=== PATIENT | female | born 1970 | race Caucasian/White ===

== ENCOUNTER 2021-06-24 15:54 | Emergency (ER) | payer OTHER ==
[2021-06-24] MEDS ORDERED: Zofran 4 MG/2 ML VIAL IV ONE (16:12)
[2021-06-24] MEDS ORDERED: Sodium Chloride 0.9% 1000 ML 1,000 ML IV STA (16:12)
[2021-06-24] MEDS ORDERED: MORPHINE SULFATE 4 MG INJ IV ONE (16:13)
[2021-06-24] MEDS ORDERED: Zofran 4 MG/2 ML VIAL ONE (16:14)
[2021-06-24] MEDS ORDERED: Sodium Chloride 0.9% 1000 ML 1,000 ML ONE (16:14)
[2021-06-24] MEDS ORDERED: MORPHINE SULFATE 4 MG INJ ONE (16:14)
--- NOTE | 2021-06-24 16:21 | ERPHSYRPT ---
- History of Present Illness Time Seen by Provider: 06/24/21 15:55 Historian: patient Exam Limitations: no limitations Patient Subjective Stated Complaint: Pt states that she has a lot of pelvic pressure and off and on blood in her urine and the feeling of having to urinate a lot, had low back pain starting 4 days ago Triage Nursing Assessment: Pt brought to the ER by her room mate, hypertensive, rates pain as 7/10, bleeding began today, lots of pressure in her lower abdomen/pelvic region, urge to urinate frequently, not concerned with any STD due to absenece for several years Physician History: 50 years old female presented to the ER with chief complaint of flank and lower abdominal pain. Patient reports 4 days ago she woke up with bilateral flank pain which got better but gradually worsening more in the pelvic/suprapubic area, dull sharp to burning, more with urination. Reports increase urinary frequency a nd sense of incomplete voiding and noticed some hematuria prior to arrival. Denies any history of kidney stones. No fever or chills reported. Timing/Duration: day(s) (4), gradual onset, worse Activities at Onset: rest Quality: burning, sharpness Abdominal Pain Onset Location: suprapubic, flank Severity of Pain-Max: moderate Severity of Pain-Current: moderate Modifying Factors: Worsens With: urinating Associated Symptoms: nausea, No fever/chills Previous symptoms: no prior history Allergies/Adverse Reactions: No Known Drug Allergies Allergy (Verified 06/24/21 16:12) Home Medications: Atorvastatin Calcium 40 mg PO DAILY 06/24/21 [History] Doxepin HCl 25 mg PO DAILY 06/24/21 [History] Enalapril Maleate 2.5 mg PO DAILY 06/24/21 [History] Metformin HCl 500 mg [Glucophage 500 MG] 500 mg PO DAILY 06/24/21 [History] Metoprolol Tartrate 100 mg PO BID 06/24/21 [History] Omeprazole 40 mg PO DAILY 06/24/21 [History] Venlafaxine HCl [Venlafaxine HCl ER] 150 mg PO DAILY 06/24/21 [History] Travel Risk - International Travel Have you traveled outside of the country in past 3 weeks: No - Coronavirus Screening Are you exhibiting any of the following symptoms?: No Close contact with a COVID-19 positive Pt in past 14-21 Days: No - Vaccine Status Have you recieved a Covid-19 vaccination: No - Review of Systems Constitutional: No Symptoms Eyes: No Symptoms Ears, Nose, & Throat: No Symptoms Respiratory: No Symptoms Cardiac: No Symptoms Abdominal/Gastrointestinal: Abdominal Pain, Nausea Genitourinary Symptoms: Dysuria, Frequency, Hematuria Musculoskeletal: Back Pain Skin: No Symptoms Neurological: No Symptoms Psychological: No Symptoms Endocrine: No Symptoms Hematologic/Lymphatic: No Symptoms Immunological/Allergic: No Symptoms - Past Medical History Pertinent Past Medical History: Yes Cardiac History: High Cholesterol, Hypertension Endocrine Medical History: Diabetes Type II Psycho-Social History: Anxiety, Depression - Past Surgical History Past Surgical History: Yes Female Surgical History: Hysterectomy, Tubal Ligation - Social History Smoking Status: Current every day smoker Exposure to second hand smoke: Yes Patient Lives Alone: No - Nursing Vital Signs Nursing Vital Signs: Initial Vital Signs Temperature 98.5 F 06/24/21 16:00 Pulse Rate 90 06/24/21 16:00 Blood Pressure 161/102 06/24/21 16:00 O2 Sat by Pulse Oximetry 97 06/24/21 16:00 Pain Scale Pain Intensity 7 - Physical Exam General Appearance: no apparent distress, alert Eye Exam: PERRL/EOMI, eyes nml inspection Ears, Nose, Throat Exam: normal ENT inspection, pharynx normal Neck Exam: normal inspection, supple, full range of motion Respiratory Exam: normal breath sounds, lungs clear Cardiovascular Exam: regular rate/rhythm, normal heart sounds Gastrointestinal/Abdomen Exam: soft, normal bowel sounds, tenderness (Suprapubic), No distention, No guarding Back Exam: normal inspection, normal range of motion, CVA tenderness (Bilateral) Extremity Exam: normal inspection, normal range of motion, pelvis stable Neurologic Exam: alert, oriented x 3, cooperative Skin Exam: normal color SpO2 Interpretation: normal SpO2: 97 O2 Delivery: Room Air Ordered Tests: Active Orders 24 hr Category Date Time Status IV Insertion STAT Care 06/24/21 16:11 Active ABDOMEN AND PELVIS W/0 CONTRAS [CT] Stat Exams 06/24/21 16:12 Completed CBC W DIFF Stat Lab 06/24/21 16:12 Completed CMP Stat Lab 06/24/21 16:12 Completed CULTURE,URINE Stat Lab 06/24/21 16:04 Received LIPASE Stat Lab 06/24/21 16:12 Completed UA W/RFX UR CULTURE Stat Lab 06/24/21 16:04 Completed Medication Summary Generic Name Dose Route Start Last Admin Trade Name Frealfred PRN Reason Stop Dose Admin Sodium Chloride 1,000 mls @ 999 mls/hr 06/24/21 16:12 06/24/21 16:16 Sodium Chloride 0.9% 1000 Ml IV 06/24/21 17:12 999 mls/hr .Q1H1M STA Administration Discontinued Medications Generic Name Dose Route Start Last Admin Trade Name Freq PRN Reason Stop Dose Admin Sodium Chloride Confirm 06/24/21 16:14 Sodium Chloride 0.9% 1000 Ml Administered 06/24/21 16:15 Dose 1,000 mls @ ud .ROUTE .STK-MED ONE Morphine Sulfate 4 mg 06/24/21 16:13 06/24/21 16:16 Morphine Sulfate 4 Mg/Ml Injection IV 06/24/21 16:14 4 mg STAT ONE Administration Morphine Sulfate Confirm 06/24/21 16:14 Morphine Sulfate 4 Mg/Ml Injection Administered 06/24/21 16:15 Dose 4 mg .ROUTE .STK-MED ONE Ondansetron HCl 4 mg 06/24/21 16:12 06/24/21 16:16 Ondansetron Hcl 4 Mg/2 Ml Vial IV 06/24/21 16:13 4 mg STAT ONE Administration Ondansetron HCl Confirm 06/24/21 16:14 Ondansetron Hcl 4 Mg/2 Ml Vial Administered 06/24/21 16:15 Dose 4 mg .ROUTE .STK-MED ONE Lab/Rad Data: Laboratory Result Diagrams 06/24/21 16:12 06/24/21 16:12 Laboratory Results 06/24/21 06/24/21 06/24/21 Range/Units 16:12 16:12 16:04 WBC 17.2 H (4.0-10.5) K/mm3 RBC 4.70 (4.1-5.4) M/mm3 Hgb 14.3 (12.0-16.0) gm/dl Hct 41.9 (35-47) % MCV 89.1 (78-100) fl MCH 30.4 (26-32) pg MCHC 34.1 (32-36) g/dl RDW 13.1 (11.5-14.0) % Plt Count 234 (150-450) K/mm3 MPV 10.2 (7.5-11.0) fl Gran % 79.2 H (36.0-66.0) % Eos # (Auto) 0.06 (0-0.5) Absolute Lymphs (auto) 2.73 (1.0-4.6) Absolute Monos (auto) 0.76 (0.0-1.3) Lymphocytes % 15.9 L (24.0-44.0) % Monocytes % 4.4 (0.0-12.0) % Eosinophils % 0.3 (0.00-5.0) % Basophils % 0.2 (0.0-0.4) % Absolute Granulocytes 13.60 H (1.4-6.9) Basophils # 0.04 (0-0.4) Sodium 138 (137-145) mmol/L Potassium 4.1 (3.5-5.1) mmol/L Chloride 105 (98-107) mmol/L Carbon Dioxide 23 (22-30) mmol/L Anion Gap 13.7 (5-15) MEQ/L BUN 10 (7-17) mg/dL Creatinine 0.56 (0.52-1.04) mg/dL Estimated GFR > 60.0 ML/MIN Glucose 148 H (74-106) mg/dL Calcium 9.8 (8.4-10.2) mg/dL Total Bilirubin 0.50 (0.2-1.3) mg/dL AST 34 (14-36) U/L ALT 46 H (0-35) U/L Alkaline Phosphatase 113 (38-126) U/L Serum Total Protein 7.2 (6.3-8.2) g/dL Albumin 4.6 (3.5-5.0) g/dL Lipase 208 (23-300) U/L Urine Color STRAW (YELLOW) Urine Appearance CLEAR (CLEAR) Urine pH 6.0 (5-6) Ur Specific [place] 1.004 (1.005-1.025) Urine Protein NEGATIVE (Negative) Urine Ketones NEGATIVE (NEGATIVE) Urine Blood LARGE (0-5) Richie/ul Urine Nitrite NEGATIVE (NEGATIVE) Urine Bilirubin NEGATIVE (NEGATIVE) Urine Urobilinogen NEGATIVE (0-1) mg/dL Ur Leukocyte Esterase NEGATIVE (NEGATIVE) Urine WBC (Auto) 11-15 (0-5) /HPF Urine RBC (Auto) 16-25 (0-2) /HPF U Epithel Cells (Auto) NONE (FEW) /HPF Urine Bacteria (Auto) NONE (NEGATIVE) /HPF Urine Culture Reflexed YES (NO) Urine Glucose NEGATIVE (NEGATIVE) mg/dL - Progress Progress: improved, re-examined Progress Note: 06/24/21 17:06 50 years old is evaluated for flank/pelvic/suprapubic discomfort with some hematuria. Given fluid bolus and symptomatic treatment for pain. Has a white count of 17, grossly unremarkable chemistry, does have UTI. I have obtained CT abdomen pelvis without contrast which showed jejunal thickening with finding consistent for enteritis. Patient later did report that she is having off-and-on loose stool for the last few days. I will treat her with Cipro and Flagyl which will cover enteritis and UTI. Recommended Tylenol/ibuprofen as needed and outpatient follow-up. Discussed signs symptoms of worsening needing return to ER which she seems understanding. Stable for discharge. Counseled pt/family regarding: lab results, diagnosis, need for follow-up, rad results - Departure Departure Disposition: Home Clinical Impression: Enteritis, Acute UTI Condition: Stable Critical Care Time: No Referrals: ALBA DAHL MD [Primary Care Provider] - Follow Up with PCP/3 days Instructions: Blood in the Urine (Hematuria) in Adults Additional Instructions: Drink plenty of fluids. Take Tylenol/ibuprofen as needed. Continue with antibiotics. Follow-up with your primary care for reevaluation. Return to ER for worsening abdominal pain, intractable diarrhea/vomiting/worsening blood in urine/fever chills etc. Prescriptions: Ciprofloxacin [Cipro 500 MG] 500 mg PO BID #14 tablet Metronidazole 500 mg [Flagyl 500 MG] 500 mg PO TID #21 tablet
[2021-06-24 16:37] LABS: BASOPHIL % 0.2 % (0.0-0.4); Basophil (Absolute #) 0.04 (0-0.4); Eosinophil % 0.3 % (0.00-5.0); Eosinophil (Absolute #) 0.06 (0-0.5); Hematocrit 41.9 % (35-47); Hemoglobin 14.3 gm/dl (12.0-16.0); Lymphocyte (Absolute #) 2.73 (1.0-4.6); Lymphocytes % 15.9 % (24.0-44.0); Mean Cell Volume 89.1 fl (78-100); Mean Corpuscular Hemoglobin 30.4 pg (26-32); Mean Corpuscular Hgb Concent. 34.1 g/dl (32-36); Mean Platelet Volume 10.2 fl (7.5-11.0); Monocyte (Absolute #) 0.76 (0.0-1.3); Monocytes % 4.4 % (0.0-12.0); Neutrophil % 79.2 % (36.0-66.0); Platelet Count 234 K/mm3 (150-450); Red Cell Distribution Width 13.1 % (11.5-14.0); White Blood Count 17.2 K/mm3 (4.0-10.5)
[2021-06-24 16:49] LABS: ALBUMIN 4.6 g/dL (3.5-5.0); ALKALINE PHOSPHATASE 113 U/L (38-126); ANION GAP 13.7 MEQ/L (5-15); BLOOD UREA NITROGEN 10 mg/dL (7-17); CHLORIDE 105 mmol/L (98-107); Calcium 9.8 mg/dL (8.4-10.2); Carbon Dioxide 23 mmol/L (22-30); Creatinine 1 0.56 mg/dL (0.52-1.04); EST GLOMERULAR FILTRATION RATE > 60.0 ML/MIN; Glucose 148 mg/dL (74-106); LIPASE 208 U/L (23-300); Potassium 4.1 mmol/L (3.5-5.1); SGOT/AST 34 U/L (14-36); SGPT/ALT 46 U/L (0-35); SODIUM 138 mmol/L (137-145); Total Protein 7.2 g/dL (6.3-8.2)
--- NOTE | 2021-06-24 16:50 | XRAY ---
Indication: Abdomen pain, hematuria, and nausea. Multiple contiguous axial images obtained through the abdomen and pelvis without contrast using renal stone protocol. Comparison: None Lung bases are clear. Heart not enlarged. No renal calculus or evidence for obstructive uropathy in either system. Noncontrasted stomach and bowel loops appear nonobstructed with normal appendix. A few jejunal bowel loops demonstrates mild distension with mild/moderate circumferential wall thickening as seen with enteritis. Previous hysterectomy. No free fluid/air. Remaining liver, gallbladder, pancreas, spleen, adrenal glands, kidneys, ureters, and bladder are unremarkable for noncontrast exam. Mild scattered aortoiliac calcifications without AAA. Osseous structures intact with minimal degenerative changes throughout the thoracolumbar spine. No ventral or inguinal hernias. Impression: 1. Negative renal calculus or evidence for obstructive uropathy. 2. Jejunal bowel wall thickening. Rule out enteritis. 3. Remaining CT abdomen/pelvis without contrast exam is negative.
[2021-06-24 16:52] LABS: Appearance CLEAR (CLEAR); Bilirubin NEGATIVE (NEGATIVE); Blood LARGE Ery/ul (0-5); Glucose NEGATIVE (NEGATIVE); Ketones NEGATIVE (NEGATIVE); Leukocyte Esterase NEGATIVE (NEGATIVE); Nitrite NEGATIVE (NEGATIVE); Protein,Urine Dip NEGATIVE (Negative); Specific Gravity 1.004 (1.005-1.025); Urobilinogen NEGATIVE mg/dL (0-1)
[2021-06-24] MEDS ORDERED: Flagyl 500 MG ONE ×2 (17:11→17:21)
[2021-06-24] MEDS ORDERED: Cipro 500 MG ONE (17:11)
[2021-06-24] MEDS: Cipro 500 MG PO STA ×2 (17:12→17:25)
[2021-06-24] MEDS: Flagyl 500 MG PO ONE ×2 (17:12→17:25)
[2021-06-24] MEDS ORDERED: Flagyl 500 MG PO ONE (17:18)
[2021-06-24] MEDS ORDERED: Levofloxacin 250MG Tablet PO ONE (17:19)
[2021-06-24] MEDS ORDERED: Levofloxacin 250MG Tablet ONE (17:20)
[2021-06-24] MEDS ORDERED: Augmentin 875-125 Tablet PO ONE (17:25)
[2021-06-24] MEDS ORDERED: Augmentin 875-125 Tablet ONE (17:26)
[2021-06-24 17:29] VITALS: BP 137/73; PULSE 84; O2SAT 96
== END 2021-06-24 17:35 | disposition home or self-care (01) ==
LOC: ED 15:54
DX: N39.0 Urinary tract infection, site not specified (principal); K52.9 Noninfective gastroenteritis and colitis, unspecified; R30.0 Dysuria; E78.5 Hyperlipidemia, unspecified; I10 Essential (primary) hypertension; E11.9 Type 2 diabetes mellitus without complications; Z79.84 Long term (current) use of oral hypoglycemic drugs; Z72.0 Tobacco use; Z79.899 Other long term (current) drug therapy
CPT/HCPCS: 36000; 36415; 74176; 80053; 81001; 83690; 85025; 87077; 87086; 87186; 96360; 96374; 96375; 99284; J2270; J2405; A9270-GY

== ENCOUNTER 2022-06-06 09:08 | Emergency (ER) | payer OTHER ==
--- NOTE | 2022-06-06 09:26 | ERPHSYRPT ---
- History of Present Illness Time Seen by Provider: 06/06/22 09:26 Source: patient Exam Limitations: no limitations Physician History: This is an obese 51-year-old white female patient of Dr. Dahl who states she had a fever of 102.3 F approximately 3 days ago with associated productive cough of green phlegm and body aches as well as headache. When she is coughing she has shortness of breath. She does not have chest pain. She does not have abdominal pain. She has been exposed to individuals with similar symptoms. She has not had nausea vomiting or diarrhea. Patient is a current daily smoker of cigarettes. Patient has a history of diabetes, gastroesophageal reflux disease, hyperlipidemia and hypertension. Timing/Duration: day(s) (3) Cough Quality/Degree: moderate, productive cough (Renal phlegm) Possible Cause: occasional episodes Modifying Factors: Improves With: coughing Associated Symptoms: fever, headache, muscle aches Allergies/Adverse Reactions: No Known Drug Allergies Allergy (Verified 06/24/21 16:12) Home Medications: Atorvastatin Calcium 40 mg PO DAILY 06/24/21 [History] Doxepin HCl 25 mg PO DAILY 06/24/21 [History] Enalapril Maleate 2.5 mg PO DAILY 06/24/21 [History] Metformin HCl 500 mg [Glucophage 500 MG] 500 mg PO DAILY 06/24/21 [History] Metoprolol Tartrate 100 mg PO BID 06/24/21 [History] Omeprazole 40 mg PO DAILY 06/24/21 [History] Venlafaxine HCl [Venlafaxine HCl ER] 225 mg PO DAILY 06/24/21 [History] Aspirin [Aspirin EC] 81 mg PO DAILY 06/06/22 [History] Travel Risk - International Travel Have you traveled outside of the country in past 3 weeks: No - Coronavirus Screening Are you exhibiting any of the following symptoms?: Yes Symptoms: Fever, Cough: New Onset, Headaches/Body Aches/Fatigue Close contact with a COVID-19 positive Pt in past 14-21 Days: No - Vaccine Status Have you recieved a Covid-19 vaccination: No - Review of Systems Constitutional: Fever Eyes: No Symptoms Ears, Nose, & Throat: No Symptoms Respiratory: Cough Cardiac: No Symptoms Abdominal/Gastrointestinal: No Symptoms Genitourinary Symptoms: No Symptoms Musculoskeletal: Arthralgias, Myalgias Skin: No Symptoms Neurological: No Symptoms Psychological: No Symptoms Endocrine: No Symptoms Hematologic/Lymphatic: No Symptoms Immunological/Allergic: No Symptoms All Other Systems: Reviewed and Negative - Past Medical History Pertinent Past Medical History: Yes Cardiac History: High Cholesterol, Hypertension Endocrine Medical History: Diabetes Type II Psycho-Social History: Anxiety, Depression - Past Surgical History Past Surgical History: Yes Female Surgical History: Hysterectomy, Tubal Ligation - Social History Smoking Status: Current every day smoker Exposure to second hand smoke: Yes Patient Lives Alone: No - Nursing Vital Signs Nursing Vital Signs: Initial Vital Signs Temperature 97.4 F 06/06/22 09:09 Pulse Rate 108 H 06/06/22 09:09 Respiratory Rate 22 06/06/22 09:09 Blood Pressure 154/89 06/06/22 09:09 O2 Sat by Pulse Oximetry 98 06/06/22 09:09 Pain Scale Pain Intensity 6 - Physical Exam General Appearance: no apparent distress, alert, anxiety, obese Eye Exam: PERRL/EOMI, eyes nml inspection Ears, Nose, Throat Exam: moist mucous membranes, other (Tongue with what appears to be oral candidiasis) Neck Exam: normal inspection, non-tender, supple, full range of motion Respiratory Exam: normal breath sounds, lungs clear, airway intact, No chest tenderness, No respiratory distress Cardiovascular Exam: tachycardia Gastrointestinal/Abdomen Exam: soft, normal bowel sounds, No tenderness Pelvic Exam: not done Rectal Exam: not done Back Exam: normal inspection, normal range of motion, No CVA tenderness, No vertebral tenderness Extremity Exam: normal inspection, normal range of motion, pelvis stable Neurologic Exam: alert, oriented x 3, cooperative, 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, normal mood/affect, nml cerebellar function, nml station & gait, sensation nml Skin Exam: normal color, warm, dry Lymphatic Exam: No adenopathy SpO2 Interpretation: normal O2 Delivery: Room Air - Course Nursing assessment & vital signs reviewed: Yes Ordered Tests: Active Orders 24 hr Category Date Time Status CHEST 1 VIEW (PORTABLE) Stat Exams 06/06/22 09:26 Taken Lab/Rad Data: Laboratory Results 06/06/22 Range/Units 09:45 Influenza Type A Ag POSITIVE (NEGATIVE) Influenza Type B Ag NEGATIVE (NEGATIVE) RSV (PCR) NEGATIVE (Negative) SARS-CoV-2 (PCR) NEGATIVE (NEGATIVE) Group A Strep Antibody NOT DETECTED (NEGATIVE) - Progress Progress: re-examined, unchanged Progress Note: 06/06/22 10:37 Chest x-ray shows a question of right basilar atelectasis versus early infiltrate. Medical decision making: This patient does have influenza A infection. She is coughing up some greenish phlegm and has had fevers at home. We will start Tamiflu on her, provide her with short course of steroids and start her on an antibiotic. We also will provide her with outpatient antitussive. Blood Culture(s) Obtained: No Antibiotics given: Yes Counseled pt/family regarding: lab results, diagnosis, need for follow-up, rad results - Departure Departure Disposition: Home Clinical Impression: Upper respiratory infection, Influenza A H1N1 infection, Oral candidiasis Condition: Stable Critical Care Time: No Referrals: ALBA DAHL MD [Primary Care Provider] - Follow up/PCP as directed Additional Instructions: Drink plenty of fluids. Take your medication as prescribed. Monitor your blood sugar closely while taking your steroids. Follow-up with your primary care provider for persistent symptoms. Prescriptions: Hydrocodone/Acetaminophen [Hydrocodone-Acetamn 7.5-325/15] 10 ml PO Q8H PRN PRN #120 ml MDD 30 ml PRN Reason: Cough Prednisone 10 mg [Deltasone 10 mg] 10 mg PO TID #12 tablet Fluconazole 100 mg [Diflucan 100 MG] 100 mg PO DAILY #7 tablet Oseltamivir 75 mg [Tamiflu 75MG Capsule] 75 mg PO BID #10 cap Azithromycin 250 mg [Zithromax 250 MG TABLET] 250 mg PO ZPACK #6 tablet
[2022-06-06 10:12] LABS: Group A Strep NOT DETECTED (NEGATIVE)
[2022-06-06 10:25] LABS: INFLUENZA B NEGATIVE (NEGATIVE); RESPIRATORY SYNCTIAL VIRUS NEGATIVE (Negative); SARS-CoV-2 Xpert Express NEGATIVE (NEGATIVE)
[2022-06-06 10:27] LABS: INFLUENZA A POSITIVE (NEGATIVE)
[2022-06-06 10:57] VITALS: O2SAT 96
[2022-06-06 11:06] VITALS: BP 98/82; PULSE 89
--- NOTE | 2022-06-06 16:09 | XRAY ---
Indication: Fever and cough. Comparison: None Portable chest inflated and clear. Heart not enlarged. Bony thorax intact with mild osteopenia and degenerative changes. Impression: Nonacute chest.
== END 2022-06-06 11:09 | disposition home or self-care (01) ==
LOC: ED 09:08
DX: J10.1 Influenza due to other identified influenza virus with other respiratory manifestations (principal); J06.9 Acute upper respiratory infection, unspecified; B37.0 Candidal stomatitis; R50.9 Fever, unspecified; R05.1 Acute cough; M79.10 Myalgia, unspecified site; R51.9 Headache, unspecified; E11.9 Type 2 diabetes mellitus without complications; E78.5 Hyperlipidemia, unspecified; I10 Essential (primary) hypertension; Z79.84 Long term (current) use of oral hypoglycemic drugs; Z79.891 Long term (current) use of opiate analgesic; Z79.52 Long term (current) use of systemic steroids; Z79.899 Other long term (current) drug therapy; Z72.0 Tobacco use; Z28.310 Unvaccinated for COVID-19
CPT/HCPCS: 0241U; 71045; 87651; 99283

== ENCOUNTER 2022-12-06 12:25 | Emergency (ER) | payer OTHER ==
--- NOTE | 2022-12-06 12:55 | ERPHSYRPT ---
- History of Present Illness Time Seen by Provider: 12/06/22 12:55 Source: patient Patient Subjective Stated Complaint: C/O left sided rib pain following a fall at home yesterday evening. Patient states she slipped in water on the kitchen floot. Denies hitting her head. Triage Nursing Assessment: Patient ambulated back to ER without difficulties; gait is slow and patient is gaurding left side. She is alert and oriented. NO SOB. Patient with a dry, weak cough; patient states it hurts too bad to cough forcefully. Physician History: This a 52-year-old white female who fell yesterday evening onto her left ribs. She has significant pain present. She has no other areas of pain other than the left ribs. Patient slipped on water which caused her to fall. Patient has a history of diabetes, hypertension, hyperlipidemia and GERD. Occurred: yesterday Reason for Fall: slipped (On water) Injuries/Pain Location: chest (Left mid to lower ribs) Loss of Consciousness: no loss of consciousness Quality: sharpness Severity of Pain-Max: moderate Severity of Pain-Current: moderate Modifying Factors: Improves With: movement Associated Symptoms (Fall): denies symptoms Allergies/Adverse Reactions: No Known Drug Allergies Allergy (Verified 12/06/22 12:36) Home Medications: Atorvastatin Calcium 40 mg PO DAILY 06/24/21 [History] Doxepin HCl 25 mg PO DAILY 06/24/21 [History] Enalapril Maleate 2.5 mg PO DAILY 06/24/21 [History] Metformin HCl 500 mg [Glucophage 500 MG] 500 mg PO DAILY 06/24/21 [History] Metoprolol Tartrate 100 mg PO BID 06/24/21 [History] Omeprazole 40 mg PO DAILY 06/24/21 [History] Venlafaxine HCl [Venlafaxine HCl ER] 225 mg PO DAILY 06/24/21 [History] Aspirin [Aspirin EC] 81 mg PO DAILY 06/06/22 [History] Hx Tetanus, Diphtheria Vaccination/Date Given: Yes Hx Influenza Vaccination/Date Given: No Hx Pneumococcal Vaccination/Date Given: No Immunizations Up to Date: Yes Travel Risk - International Travel Have you traveled outside of the country in past 3 weeks: No - Coronavirus Screening Are you exhibiting any of the following symptoms?: No Close contact with a COVID-19 positive Pt in past 14-21 Days: No - Vaccine Status Have you recieved a Covid-19 vaccination: No - Review of Systems Constitutional: No Symptoms Eyes: No Symptoms Ears, Nose, & Throat: No Symptoms Respiratory: No Symptoms Cardiac: No Symptoms Abdominal/Gastrointestinal: No Symptoms Genitourinary Symptoms: No Symptoms Musculoskeletal: Fall, Injury (Left mid to lower ribs) Skin: No Symptoms Neurological: No Symptoms Psychological: No Symptoms Endocrine: No Symptoms Hematologic/Lymphatic: No Symptoms Immunological/Allergic: No Symptoms All Other Systems: Reviewed and Negative - Past Medical History Pertinent Past Medical History: Yes Neurological History: No Pertinent History ENT History: No Pertinent History Cardiac History: High Cholesterol, Hypertension Respiratory History: No Pertinent History Endocrine Medical History: Diabetes Type II Musculoskeletal History: Fractures GI Medical History: GERD History: No Pertinent History Psycho-Social History: Anxiety, Depression Female Reproductive Disorders: No Pertinent History - Past Surgical History Past Surgical History: Yes Neuro Surgical History: No Pertinent History Cardiac: No Pertinent History Respiratory: No Pertinent History Gastrointestinal: No Pertinent History Genitourinary: No Pertinent History Musculoskeletal: No Pertinent History Female Surgical History: Hysterectomy, Tubal Ligation Other Surgical History: CARPARL TUNNEL SURGERY, TRIGGER FINGER, ELBOW - Social History Smoking Status: Current every day smoker How long have you smoked: 20 YEARS Exposure to second hand smoke: Yes Drug Use: none Patient Lives Alone: No - Nursing Vital Signs Nursing Vital Signs: Initial Vital Signs Blood Pressure 155/87 12/06/22 12:34 O2 Sat by Pulse Oximetry 96 12/06/22 12:34 Pain Scale Pain Intensity 8 - [place] Coma Score Best Eye Response ([place]): (4) open spontaneously Best Verbal Response ([place]): (5) oriented Best Motor Response ([place]): (6) obeys commands [place] Total: 15 - Physical Exam General Appearance: mild distress, alert, anxiety, obese Head Injury: no evidence of injury Eye Exam: PERRL/EOMI, eyes nml inspection ENT Exam: airway nml, nml ext.inspection, No evidence of ENT injury Neck Exam: supple, trachea midline, full range of motion, normal alignment, normal inspection Respiratory/Chest Exam: rib tenderness (Left mid to lower ribs), No crepitus, No wheezing, No accessory muscle use Cardiovascular Exam: normal heart sounds, regular rate/rhythm Gastrointestinal Exam: soft, normal bowel sounds, tenderness Rectal Exam: not done Back Exam: normal inspection, normal range of motion, No CVA tenderness, No vertebral tenderness Extremity Exam: normal inspection, normal range of motion, capillary refill <3 sec, pelvis stable Neurologic Exam: alert, oriented x 3, cooperative, 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, normal mood/affect, nml cerebellar function, nml station & gait, sensation nml Skin Exam: normal color, warm, dry SpO2 Interpretation: normal SpO2: 96 O2 Delivery: Room Air - Course Nursing assessment & vital signs reviewed: Yes Ordered Tests: Active Orders 24 hr Category Date Time Status CHEST 2 VIEWS (PA AND LAT) Stat Exams 12/06/22 12:35 Completed RIBS UNILATERAL Stat Exams 12/06/22 12:35 Completed Medication Summary Discontinued Medications Generic Name Dose Route Start Last Admin Trade Name Chalino PRN Reason Stop Dose Admin Oxycodone/Acetaminophen 1 tab 12/06/22 13:31 12/06/22 13:34 Oxycodone Hcl/Apap 5 Mg/325 Mg Tablet PO 12/06/22 13:32 1 tab STAT STA Administration Oxycodone/Acetaminophen Confirm 12/06/22 13:33 Oxycodone Hcl/Apap 5 Mg/325 Mg Tablet Administered 12/06/22 13:34 Dose 1 tab .ROUTE .STK-MED ONE - Progress Progress: improved, pain not gone completely Progress Note: 12/06/22 13:54 Rib x-rays and chest x-ray was interpreted by the radiologist and I reviewed the impression. This patient has nondisplaced rib fractures 8 9 and 10 on the left side. This patient's medical issue is 1 of low to moderate complexity. Patient has a new diagnosis. The level of complexity and the medical issue is based on the review of the patient's past medical history, review of the patient's medication list, review of the patient's drug allergy list, history of present illness and physical findings on examination. The patient requires a rib x-ray study as well as a chest x-ray study. Patient will need pain control. Patient is to follow-up with her primary care provider as an outpatient in the next 1 to 3 days for reevaluation and to assess her pain. There is no evidence of any hemothorax or pneumothorax on the impression from the radiologist. We will tell the patient not to use a chest or rib binder. Counseled pt/family regarding: diagnosis, need for follow-up, rad results Medical Desision Making - Diagnostic Testing Radiological Interpretation: Reviewed by me, Teleradiologist Report - Risk of complications The pt has a mod risk of morbidity or mortality based on: Need for prescription drug management - Departure Departure Disposition: Home Clinical Impression: Left rib fracture Condition: Stable Critical Care Time: No Referrals: ALBA DAHL MD [Primary Care Provider] - Follow up/PCP as directed Additional Instructions: Do not wear a chest or rib binder. Take your medications as prescribed. Call your primary care provider today to make arrangement for follow-up appointment in the next 1 to 3 days. Call your primary care provider for further evaluation and management of your pain control. Prescriptions: Oxycodone HCl/Acetaminophen [Percocet 5-325 mg Tablet] 1 each PO Q8H PRN PRN #9 tablet MDD 3 PRN Reason: Moderate To Severe Pain Naproxen 500 mg [Naprosyn 500 MG] 500 mg PO BID #10 tablet
[2022-12-06] MEDS ORDERED: PERCOCET TABLET 5/325MG PO STA (13:31)
[2022-12-06 13:32] VITALS: BP 131/86; PULSE 86
[2022-12-06] MEDS ORDERED: PERCOCET TABLET 5/325MG ONE (13:33)
--- NOTE | 2022-12-06 13:47 | XRAY ---
CLINICAL HISTORY:Fall with pain. COMPARISON:None. TECHNIQUES:X-ray chest (2 views) PA and lateral views. FINDINGS: Both lungs are clear. No sizable nodules, consolidation or masses. Both costophrenic angles are free. No sizable pleural effusion or thickening. Normal cardiac size and shape, normal aortic arch and no pericardial effusion. Unremarkable thoracic bony cage with no definite fractures detected. IMPRESSION: Normal chest radiograph. Electronically Signed by: Caden Reardon MD. ( 12/06/2022 12:43:29 HOME CARE CONSULTANT)
--- NOTE | 2022-12-06 13:49 | XRAY ---
CLINICAL HISTORY:Fall with pain. COMPARISON:None. TECHNIQUES:CR left ribs (6 views) AP and Oblique views. FINDINGS: Nondisplaced fractures of the left 8th, 9th and 10th ribs are noted. No subluxation or dislocation. Normal osseous mineralization. No abnormal soft tissue density. IMPRESSION: Nondisplaced fractures of the left 8th, 9th and 10th ribs. DISCLAIMER: A subtle bone abnormality or fracture may not be readily apparent on x-rays, thus clinical correlation and further imaging including follow-up CT, MRI, or follow-up x-rays are advised as needed. Electronically Signed by: Caden Reardon MD. (12/06/2022 12:45:42 LINE OPERATOR)
[2022-12-06 14:02] VITALS: O2SAT 97
== END 2022-12-06 14:23 | disposition home or self-care (01) ==
LOC: ED 12:25
DX: S22.42XA Multiple fractures of ribs, left side, initial encounter for closed fracture (principal); W19.XXXA Unspecified fall, initial encounter; E11.9 Type 2 diabetes mellitus without complications; I10 Essential (primary) hypertension; E78.5 Hyperlipidemia, unspecified; Z79.84 Long term (current) use of oral hypoglycemic drugs; Z79.891 Long term (current) use of opiate analgesic; Z79.899 Other long term (current) drug therapy; Z28.310 Unvaccinated for COVID-19; Z72.0 Tobacco use
CPT/HCPCS: 71046; 71100; 99283; A9270-GY

== ENCOUNTER 2023-11-10 13:11 | Emergency (ER) | payer OTHER ==
--- NOTE | 2023-11-10 13:18 | ERPHSYRPT ---
- History of Present Illness Time Seen by Provider: 11/10/23 13:17 Source: patient Exam Limitations: no limitations Physician History: This is a 53-year-old obese white female patient of Dr. Dahl who presents with right wrist pain and right foot and ankle pain after falling last evening. Patient has an alcohol use disorder and receives a monthly injection of Vivitrol. She has not drank any alcohol in several months. Patient is a daily smoker cigarettes. She has a history of diabetes, hypertension, hyperlipidemia, gastroesophageal reflux disease and anxiety. She can bear weight on her right foot and ankle but it hurts to do so. She has no other areas of pain or injury Occurred: yesterday Injuries/Pain Location: upper extremity (Right wrist), lower extremity (Right foot and ankle) Loss of Consciousness: no loss of consciousness Quality: aching Severity of Pain-Max: mild (To moderate) Severity of Pain-Current: mild (To moderate) Modifying Factors: Improves With: movement Associated Symptoms (Fall): denies symptoms Allergies/Adverse Reactions: No Known Drug Allergies Allergy (Verified 12/06/22 12:36) Home Medications: Atorvastatin Calcium 40 mg PO DAILY 06/24/21 [History] Doxepin HCl 25 mg PO DAILY 06/24/21 [History] Enalapril Maleate 2.5 mg PO DAILY 06/24/21 [History] Metformin HCl 500 mg [Glucophage 500 MG] 500 mg PO DAILY 06/24/21 [History] Metoprolol Tartrate 100 mg PO BID 06/24/21 [History] Omeprazole 40 mg PO DAILY 06/24/21 [History] Venlafaxine HCl [Venlafaxine HCl ER] 225 mg PO DAILY 06/24/21 [History] Aspirin [Aspirin EC] 81 mg PO DAILY 06/06/22 [History] Hx Tetanus, Diphtheria Vaccination/Date Given: Yes Hx Influenza Vaccination/Date Given: No Hx Pneumococcal Vaccination/Date Given: No Travel Risk - International Travel Have you traveled outside of the country in past 3 weeks: No - Emerging Infectious Disease Are you exhibiting symptoms associated with any current EIDs: No - Review of Systems Constitutional: No Symptoms Eyes: No Symptoms Ears, Nose, & Throat: No Symptoms Respiratory: No Symptoms Cardiac: No Symptoms Abdominal/Gastrointestinal: No Symptoms Genitourinary Symptoms: No Symptoms Musculoskeletal: Fall, Injury (Right wrist, right foot and right ankle) Skin: No Symptoms Neurological: No Symptoms Psychological: No Symptoms Endocrine: No Symptoms Hematologic/Lymphatic: No Symptoms Immunological/Allergic: No Symptoms All Other Systems: Reviewed and Negative - Past Medical History Pertinent Past Medical History: Yes Neurological History: No Pertinent History ENT History: No Pertinent History Cardiac History: High Cholesterol, Hypertension Respiratory History: No Pertinent History Endocrine Medical History: Diabetes Type II Musculoskeletal History: Fractures GI Medical History: GERD History: No Pertinent History Psycho-Social History: Anxiety, Depression Female Reproductive Disorders: No Pertinent History - Past Surgical History Past Surgical History: Yes Neuro Surgical History: No Pertinent History Cardiac: No Pertinent History Respiratory: No Pertinent History Gastrointestinal: No Pertinent History Genitourinary: No Pertinent History Musculoskeletal: No Pertinent History Female Surgical History: Hysterectomy, Tubal Ligation Other Surgical History: CARPARL TUNNEL SURGERY, TRIGGER FINGER, ELBOW - Social History Smoking Status: Current every day smoker How long have you smoked: 20 YEARS Exposure to second hand smoke: Yes Drug Use: none Patient Lives Alone: No - Nursing Vital Signs Nursing Vital Signs: Initial Vital Signs Temperature 97.1 F 11/10/23 13:18 Pulse Rate 80 11/10/23 13:18 Respiratory Rate 18 11/10/23 13:18 Blood Pressure 145/79 11/10/23 13:18 Pain Scale Pain Intensity 4 - Ysabel Coma Score Best Eye Response ([place]): (4) open spontaneously Best Verbal Response ([place]): (5) oriented Best Motor Response ([place]): (6) obeys commands [place]sabel Total: 15 - Physical Exam General Appearance: no apparent distress, alert, anxiety, obese Head Injury: no evidence of injury Eye Exam: PERRL/EOMI, eyes nml inspection ENT Exam: airway nml, nml ext.inspection Neck Exam: supple, trachea midline, full range of motion, normal alignment, normal inspection Respiratory/Chest Exam: normal breath sounds, No chest tenderness, No respiratory distress, No ecchymosis, No crepitus Cardiovascular Exam: normal heart sounds, regular rate/rhythm Gastrointestinal Exam: soft, normal bowel sounds, No tenderness Rectal Exam: not done Back Exam: normal inspection, normal range of motion, No CVA tenderness, No vertebral tenderness Extremity Exam: normal range of motion, pelvis stable, swelling (Dorsal aspect patient's right foot), tenderness (Right wrist without deformity. Right foot and ankle are tender with swelling in the dorsal aspect of the patient's right foot) Neurologic Exam: alert, oriented x 3, cooperative, map colorer II-XII nml as tested, normal mood/affect, nml cerebellar function, sensation nml Skin Exam: normal color, warm, dry SpO2 Interpretation: normal O2 Delivery: Room Air - Course Nursing assessment & vital signs reviewed: Yes Ordered Tests: Active Orders 24 hr Category Date Time Status Splint STAT Care 11/10/23 14:14 Active ANKLE (3 VIEWS) Stat Exams 11/10/23 13:30 Taken FOOT (MINIMUM 3 VIEWS) Stat Exams 11/10/23 13:30 Taken WRIST (MIN 3 VIEWS) Stat Exams 11/10/23 13:30 Taken - Progress Progress: unchanged, re-examined Progress Note: 11/10/23 13:41 My medical decision making and the assignment of low complexity to this patient's medical issue today is based on review of the patient's past medical history, review of the patient's medication list, review of the patient's drug allergy list, history present illness and physical findings on examination. The workup in this patient includes x-ray of the patient's right wrist, right ankle and right foot. Differential diagnosis includes sprained right wrist, closed fracture right wrist, closed dislocation right wrist, sprained right foot and ankle, fracture right foot and ankle, dislocation right foot and ankle 11/10/23 14:22 I interpreted the x-rays. My impression are: Right wrist x-ray shows no acute fracture or dislocation. Right ankle x-ray shows no acute fracture or dislocation of the patient's right ankle. However there is a minimally displaced, closed fracture of the proximal right fifth metatarsal bone. Right foot x-ray shows a minimally displaced, closed fracture of the proximal right fifth metatarsal bone 11/10/23 14:23 Patient stated she is not on Suboxone. She is not on any narcotics at this time. Counseled pt/family regarding: diagnosis, need for follow-up, rad results Medical Desision Making - Independent Historian Additional History obtained from: Family - Diagnostic Testing Diagnostic test were ordered, analyzed, and reviewed by me: Yes Radiological Interpretation: Interpreted by me - Risk of complications The pt has a mod risk of morbidity or mortality based on: Need for prescription drug management - Departure Departure Disposition: Home Clinical Impression: Fracture of metatarsal bone of right foot Condition: Stable Critical Care Time: No Referrals: ALBA DAHL MD [Primary Care Provider] - Follow up/PCP as directed Additional Instructions: Minimize weightbearing. Elevate right lower extremity above the level of the heart. Use walking boot/shoe when ambulating. May add Aleve or ibuprofen for pain control. Ice pack to tender, swollen area 3 times a day for the next 72 hours. Follow-up with Dr. Abrams, podiatry, on Tuesday, November 14, 2023 to make arrangements for follow-up appointment in the next 3 to 5 days. Another option is to follow-up at the [facility] orthopedic clinic Sunday through Sunday 8 AM to 10 AM. It is a walk-in clinic and you do not need to make an appointment. Prescriptions: Oxycodone HCl/Acetaminophen [Percocet 5-325 mg Tablet] 1 each PO Q8H PRN PRN #6 tablet MDD 3 PRN Reason: Moderate To Severe Pain
[2023-11-10 13:23] VITALS: TEMP 97.1
[2023-11-10 14:18] VITALS: BP 138/72; PULSE 64; RESP 20; O2SAT 94
[2023-11-10] MEDS ORDERED: PERCOCET TABLET 5/325MG ONE (14:28)
[2023-11-10] MEDS: PERCOCET TABLET 5/325MG PO STA (14:29)
--- NOTE | 2023-11-10 20:21 | XRAY ---
Indication: Pain following fall. Comparison: None 3 view right wrist demonstrates osteopenia and widened scapholunate interval favoring underlying ligamentous injury. No other bony, articular, or soft tissue abnormalities.
--- NOTE | 2023-11-10 20:23 | XRAY ---
Indication: Pain following fall. Comparison: None 3 nonweightbearing views right foot demonstrates nondisplaced fracture base 5th metatarsal. Elsewhere osteopenia and heel spurs. No other bony, articular, or soft tissue abnormalities.
--- NOTE | 2023-11-10 20:23 | XRAY ---
Indication: Pain following fall. Comparison: None 3 views right ankle demonstrate osteopenia and small heel spurs. Nondisplaced fracture base 5th metatarsal. No other bony, articular, or soft tissue abnormalities.
== END 2023-11-10 15:01 | disposition home or self-care (01) ==
LOC: ED 13:11
DX: S92.351A Displaced fracture of fifth metatarsal bone, right foot, initial encounter for closed fracture (principal); W19.XXXA Unspecified fall, initial encounter; M25.531 Pain in right wrist; M25.571 Pain in right ankle and joints of right foot; M79.671 Pain in right foot; E11.9 Type 2 diabetes mellitus without complications; I10 Essential (primary) hypertension; E78.5 Hyperlipidemia, unspecified; Z79.84 Long term (current) use of oral hypoglycemic drugs; Z79.891 Long term (current) use of opiate analgesic; Z79.899 Other long term (current) drug therapy; Z72.0 Tobacco use
CPT/HCPCS: 73110; 73610; 73630; 99283; L4386; A9270-GY